=== PATIENT | female | born 1985 | race Caucasian/White ===

== ENCOUNTER 2024-08-10 17:12 | Emergency (ER) | payer OTHER, SELFPAY ==
[2024-08-10 17:22] VITALS: BP 115/71; PULSE 71; RESP 16; TEMP 36.9; O2SAT 99
[2024-08-10 18:01] VITALS: BP 118/77; PULSE 62; RESP 18; TEMP 36.6; O2SAT 99
[2024-08-10 18:07] LABS: Influenza A QL RT-PCR Negative (Negative); Influenza B QL RT-PCR Negative (Negative); RSV RNA, RT-PCR Negative (Negative); SARS-CoV-2 RNA PCR Negative (Negative)
[2024-08-10] MEDS: Please add drug allergy info to patient profile. 1 EACH XX (18:31)
[2024-08-10] MEDS: ONDANSETRON INJ 4 MG/2 ML VIAL IV PUSH (18:31)
--- NOTE | 2024-08-10 18:36 | ED.GENADULT ---
HPI - General Adult General Chief complaint: Dizziness Stated complaint: DIZZINESS [id number] Time Seen by Provider: 08/10/24 18:00 History of Present Illness HPI narrative: 39-year-old female presents to the emergency department for evaluation for vertigo symptoms. Patient states when she is up and moving she has increased sensation of dizziness and movement. Patient states these symptoms are improved when she closes her eyes. Patient reports she had an episode of this a few days ago it resolved and then the symptoms came back today. Patient states symptoms are worsened when she is up and moving but are improved when she is sitting still or eyes were closed. Patient denies any falls or injuries. Patient denies any recent viral illnesses. Related Data Allergies Allergy/AdvReac Type Severity Reaction Status Date / Time amoxicillin AdvReac Hives Verified 08/10/24 18:30 Review of Systems Review of Systems: All systems reviewed & are unremarkable except as noted in HPI and below Exam Narrative: APPEARANCE: Well appearing, no pain, no distress, well-nourished. HEAD: normocephalic, atraumatic. EYES: PERRLA/EOMI, conjunctivae clear. NOSE: Normal no drainage EARS:TMS clear with good light reflex. THROAT: Pharynx clear, no exudate. NECK: Supple. No adenopathy, no masses. RESPIRATORY: Airway patent, respirations nonlabored. Clear to auscultation bilaterally, no rales, rhonchi, wheezing. CARDIOVASCULAR: Regular rate and rhythm without murmurs rubs or gallops. ABDOMINAL: Soft, nontender, nondistended, normal bowel sounds MUSCULOSKELETAL: Moves all extremities. Strength/ROM intact, No edema, No calf tenderness. NEURO: Alert. Cranial nerves II through XII intact. Grossly intact SKIN: Warm, dry. Normal Color Course Vital Signs Vital signs: Vital Signs Temperature 98.4 F 08/10/24 17:22 Pulse Rate 71 08/10/24 17:22 Respiratory Rate 16 08/10/24 17:22 Blood Pressure 115/71 08/10/24 17:22 Pulse Oximetry 99 08/10/24 17:22 Oxygen Delivery Room Air 08/10/24 17:22 Temperature 97.8 F 08/10/24 19:59 Pulse Rate 67 08/10/24 19:59 Respiratory Rate 17 08/10/24 19:59 Blood Pressure 116/73 08/10/24 19:59 Pulse Oximetry 99 08/10/24 19:59 Oxygen Delivery Room Air 08/10/24 17:22 Medical Decision Making MDM Narrative Medical decision making narrative: 39-year-old female present to the emergency department for evaluation for vertigo symptoms. Patient was negative for influenza RSV and for COVID. Patient has a normal neuro exam with no acute abnormalities. Patient was treated with meclizine and IV fluids. Patient states that she does feel significantly improved. Patient was provided additional meclizine for home. All questions concerns were addressed. Patient was encouraged close follow-up with primary care physician. Differential Diagnosis Differential Diagnosis: Orthostatic hypotension, dehydration, nausea vomiting, benign positional Vital Signs Vital Signs: Vital Signs Temperature 98.4 F 08/10/24 17:22 Pulse Rate 71 08/10/24 17:22 Respiratory Rate 16 08/10/24 17:22 Blood Pressure 115/71 08/10/24 17:22 Pulse Oximetry 99 08/10/24 17:22 Oxygen Delivery Room Air 08/10/24 17:22 Temperature 97.8 F 08/10/24 19:59 Pulse Rate 67 08/10/24 19:59 Respiratory Rate 17 08/10/24 19:59 Blood Pressure 116/73 08/10/24 19:59 Pulse Oximetry 99 08/10/24 19:59 Oxygen Delivery Room Air 08/10/24 17:22 Lab Data Labs: Lab Results 08/10/24 Range/Units 17:27 Influenza A (RT-PCR) Negative (Negative) Influenza B (RT-PCR) Negative (Negative) RSV (RT-PCR) Negative (Negative) SARS-CoV-2 RNA (RT-PCR) Negative (Negative) Discharge Plan Discharge Clinical Impression: Vertigo Patient Disposition: Home, Self-Care Condition: Stable Instructions: Antibiotic Form, Vertigo (ED), Dizziness (ED) Additional Instructions: Meclizin
[2024-08-10] MEDS: SODIUM CHLORIDE 0.9% IV 1,000 ML 999 ML IV CONT (18:41)
[2024-08-10] MEDS: MECLIZINE HCL 25 MG TABLET PO (18:42)
[2024-08-10 19:59] VITALS: BP 116/73; PULSE 67; RESP 17; TEMP 36.6; O2SAT 99
== END 2024-08-10 20:00 | disposition home or self-care (01) ==
PROVIDERS: Emergency Provider Emergency Medicine
DX: R42 Dizziness and giddiness (principal); Z20.822 Contact with and (suspected) exposure to COVID-19
CPT/HCPCS: 87637; 96361; 96374; 99284; A9270; J2405; J7030